=== PATIENT | female | born 1990 | race African-American/Black ===

== ENCOUNTER 2020-07-10 13:21 | Observation (INO) | payer MEDICAID ==
[~2020-07-10] VITALS: Ht 180.3 cm; Wt 108.0 kg
[2020-07-10] MEDS ORDERED: LACTATED RINGERS 1,000 ML IV SCH (14:30)
[2020-07-10] MEDS ORDERED: PNV1TABL76 MT (17:10)
== END 2020-07-10 17:15 | disposition home or self-care (01) ==
LOC: 8 EST LDRP 13:21
PROVIDERS: ADMIT Obstetrics & Gynecology; ATTEND Obstetrics & Gynecology
DX: O26.853 Spotting complicating pregnancy, third trimester (principal); O99.891 Other specified diseases and conditions complicating pregnancy; M54.5 Low back pain; O30.003 Twin pregnancy, unspecified number of placenta and unspecified number of amniotic sacs, third trimester; Z3A.35 35 weeks gestation of pregnancy
CPT/HCPCS: 59025; 76805; 76810; 76817; 76818; 96360; 96361; G0378; 76815; 99281